=== PATIENT | male | born 1980 | race Caucasian/White ===

== ENCOUNTER 2016-12-30 20:55 | Emergency (ER) | payer OTHER ==
[2016-12-30 21:08] VITALS: TEMP 98.2; BMI 33.2
[2016-12-30 22:38] LABS: BASOPHIL 0.6 % (0-2.0); EOSINOPHIL 2.2 % (0-4.5); MCH 31.2 pg (25.7-33.7); MCHC 34.6 g/dl (32.0-35.9); MEAN CELL VOLUME 90.3 fl (80-96); MEAN PLT VOLUME 8.9 fl (7.5-11.1); PLATELET COUNT 225 K/MM3 (134-434); RDW 12.9 % (11.9-15.9); WHITE BLOOD COUNT 7.1 K/mm3 (4.0-10.0)
--- NOTE | 2016-12-30 22:43 | PDOC ---
History of Present Illness - General History Source: Patient Exam Limitations: No Limitations - History of Present Illness Initial Comments: 12/30/16 22:57 The patient is a 36 year old male with significant past medical history of hypertension who presents to the ED for midsternal chest discomfort that began earlier today. Patient admits to drinking a good amount of alcohol this past weekend and awoke this morning not feeling well. He reports midsternal chest discomfort, which he describes as a pressure-like sensation. States his pain feels similar to the pain he feels when he works out at the gym. Denies diaphoresis, lightheadedness, SOB, palpitations, shoulder pain, arm pain, jaw pain, nausea, or vomiting. The patient denies fever, chills, cough, abdominal pain, and diarrhea. Allergies: NKDA Social History: Denies drug use. Occasional tobacco use. EtOH use. Family History: CVA Past Surgical History: None reported PCP: Dr. Louis Carter <Heather Chirinos - Last Filed: 12/30/16 22:57> - General History Source: Patient <Carlin Angel - Last Filed: 12/30/16 23:13> - General Chief Complaint: Pain Stated Complaint: CHEST PAIN Time Seen by Provider: 12/30/16 22:36 Past History <Heather Chirinos - Last Filed: 12/30/16 22:57> - Past Medical History HTN: Yes - Psycho/Social/Smoking Cessation Hx Anxiety: No Suicidal Ideation: No Smoking History: Never smoked Have you smoked in the past 12 months: Yes Information on smoking cessation initiated: No Hx Alcohol Use: No Drug/Substance Use Hx: No Substance Use Type: None <Carlin Angel - Last Filed: 12/30/16 23:13> - Past Medical History Allergies/Adverse Reactions: Allergies Allergy/AdvReac Type Severity Reaction Status Date / Time No Known Allergies Allergy Verified 12/30/16 21:04 Home Medications: Ambulatory Orders Unobtainable 12/30/16 Review of Systems - Review of Systems Able to Perform ROS?: Yes Comments:: 12/30/16 22:58 CONSTITUTIONAL: Absent: fever, no chills, no fatigue EYES: Absent: visual changes ENT: Absent: ear pain, no sore throat CARDIOVASCULAR: +mid-sternal chest pressure Absent: no palpitations RESPIRATORY: Absent: cough, no SOB GI: Absent: abdominal pain, no nausea, no vomiting, no constipation, no diarrhea GENITOURINARY: Absent: dysuria, no frequency, no hematuria MUSCULOSKELETAL: Absent: back pain, no arthralgia, no myalgia SKIN: Absent: rash NEURO: Absent: headache <CandisHeather - Last Filed: 12/30/16 22:57> *Physical Exam - Vital Signs Last Vital Signs Temp Pulse Resp BP Pulse Ox 98.2 F 98 H 20 151/92 99 12/30/16 21:05 12/30/16 21:05 12/30/16 21:05 12/30/16 21:05 12/30/16 21:05 - Physical Exam Comments: 12/30/16 22:58 GENERAL: Well-appearing, well-nourished. No apparent distress. HEENT: Normocephalic, atraumatic. PERRL, EOM intact. CARDIOVASCULAR: Normal S1, S2. Regular rate and rhythm. PULMONARY: Clear to auscultation bilaterally. ABDOMEN: Soft, non-distended, non-tender. EXTREMITIES: Normal ROM in all four extremities. No gross deformities. SKIN: Warm, dry. No rash NEUROLOGICAL: No focal neurological deficits. <CandisHeather - Last Filed: 12/30/16 22:57> - Vital Signs Last Vital Signs Temp Pulse Resp BP Pulse Ox 98.2 F 98 H 20 151/92 99 12/30/16 21:05 12/30/16 21:05 12/30/16 21:05 12/30/16 21:05 12/30/16 21:05 <Carlin Angel - Last Filed: 12/30/16 23:13> Heart Score/ECG Review - ECG Impressions Comment:: 12/30/16 22:58 NSR @83bpm Normal ECG <CandisHeather - Last Filed: 12/30/16 22:57> ED Treatment Course - LABORATORY CBC & Chemistry Diagram: 12/30/16 22:17 12/30/16 22:17 - ADDITIONAL ORDERS Additional order review: 12/30/16 22:17 RBC 4.77 MCV 90.3 MCHC 34.6 RDW 12.9 MPV 8.9 Neutrophils % 68.0 Lymphocytes % 21.2 Monocytes % 8.0 Eosinophils % 2.2 Basophils % 0.6 <Heather Chirinos - Last Filed: 12/30/16 22:57> - LABORATORY CBC & Chemistry Diagram: 12/30/16 22:17 12/30/16 22:17 - ADDITIONAL ORDERS Additional order review: 12/30/16 22:17 RBC 4.77 MCV 90.3 MCHC 34.6 RDW 12.9 MPV 8.9 Neutrophils % 68.0 Lymphocytes % 21.2 Monocytes % 8.0 Eosinophils % 2.2 Basophils % 0.6 <Carlin Angel - Last Filed: 12/30/16 23:13> Medical Decision Making - Medical Decision Making 12/30/16 23:13 Dr. Angel: The scribe's documentation has been prepared under my direction and personally reviewed by me in its entirery. I confirm that the note above accurately reflects all work, treatment, procedures, and medical decision making performed by me. <Carlin Angel - Last Filed: 12/30/16 23:13> *DC/Admit/Observation/Transfer - Attestations Scribe Attestion: 12/30/16 22:58 Documentation prepared by Heather Chirinos, acting as medical imaging technologist for Carlin Angel DO. <Heather Chirinos - Last Filed: 12/30/16 22:57> - Discharge Dispostion Admit: No <Carlin Angel - Last Filed: 12/30/16 23:13> Diagnosis at time of Disposition: Chest pain Qualifiers: Chest pain type: unspecified Qualified Code(s): R07.9 - Chest pain, unspecified - Discharge Dispostion Disposition: HOME Condition at time of disposition: Stable - Referrals Referrals: Louis Carter MD [Primary Care Provider] - Berto Botello MD [Staff Physician] - - Patient Instructions Printed Discharge Instructions: DI for Chest Pain
[2016-12-30 23:06] LABS: ALBUMIN 3.8 g/dl (3.4-5.0); ANION GAP 9 (8-16); BILIRUBIN,TOTAL 0.4 mg/dL (0.2-1.0); CALCIUM 8.7 mg/dL (8.5-10.1); CO2 29 mmol/L (21-32); CREATININE 1.4 mg/dL (0.7-1.3); GLUCOSE,RANDOM 96 mg/dL (74-106); SGOT/AST 20 U/L (15-37); SGPT/ALT 23 U/L (12-78); TOT PROT 7.2 g/dl (6.4-8.2)
[2016-12-30 23:08] LABS: ALK PHOS 104 U/L (45-117); CPK 121 IU/L (39-308); TROPONIN I < 0.02 ng/ml (0.00-0.05)
[2016-12-30 23:26] VITALS: BP 152/90; PULSE 88
--- NOTE | 2016-12-31 13:01 | EKG ---
Test Reason : Blood Pressure : / mmHG Vent. Rate : 083 BPM Atrial Rate : 083 BPM P-R Int : 172 ms QRS Dur : 090 ms QT Int : 370 ms P-R-T Axes : 030 046 017 degrees QTc Int : 434 ms NORMAL SINUS RHYTHM NONSPECIFIC ST ABNORMALITY WHEN COMPARED WITH ECG OF 05-NOV-2010 17:28, NO SIGNIFICANT CHANGE WAS FOUND Confirmed by LARISSA BALDERRAMA MD ([id number]) on 12/31/2016 1:00:41 PM Referred By: Confirmed By:LARISSA BALDERRAMA MD
== END 2016-12-30 23:21 | disposition home or self-care (01) ==
LOC: JER 20:55
DX: R07.9 Chest pain, unspecified (principal); I10 Essential (primary) hypertension
CPT/HCPCS: 36415; 80053; 84484; 85025; 93005; 93010; 99283-25